=== PATIENT | male | born 1950 | race Native Hawaiian/Other Pacific Islander ===

== ENCOUNTER 2017-12-14 08:41 | Outpatient (CLI) | payer OTHER | END 2017-12-14 22:01 | disposition home or self-care (01) | LOC: RAD 08:41 | DX: M25.562 Pain in left knee (principal) ==

== ENCOUNTER → 2018-05-03 08:59 | Outpatient (CLI) | payer OTHER | END | disposition home or self-care (01) | LOC: AMB 08:59 ==